=== PATIENT | female | born 1990 | race Caucasian/White ===

== ENCOUNTER 2016-04-26 13:21 | Emergency (ER) | payer OTHER ==
[~2016-04-26] VITALS: Ht 167.6 cm; Wt 95.4 kg
[~2016-04-26 13:21] MED LIST: Motrin PO; NAPROSYN500 MG PO; ORTHO CYCLEN1 TABLET PO; VICODIN 5-3001 EACH PO; ZITHROMAX250 MG PO; ZOLOFT25 MG PO
[2016-04-26] MEDS ORDERED: PERCOCET 5/31 TABLET PO (14:29)
[2016-04-26] MEDS ORDERED: MOTRIN800 MG PO (14:29)
[2016-04-26] MEDS ORDERED: FLEXERIL10 MG PO (14:29)
[2016-04-26] MEDS ORDERED: MELOXICAM7.5 MG PO (14:44)
[2016-04-26] MEDS ORDERED: ANORO ELLIPTA1 EACH IH (14:45)
[2016-04-26] MEDS ORDERED: VENTOLIN HFA18 GM IH (14:45)
[2016-04-26 14:51] VITALS: BP 136/88
== END 2016-04-26 14:53 | disposition home or self-care (01) ==
LOC: EME 13:21
DX: S16.1XXA Strain of muscle, fascia and tendon at neck level, initial encounter (principal); S46.911A Strain of unspecified muscle, fascia and tendon at shoulder and upper arm level, right arm, initial encounter; F17.200 Nicotine dependence, unspecified, uncomplicated; Z88.6 Allergy status to analgesic agent; Z91.041 Radiographic dye allergy status
CPT/HCPCS: 99281; 99284

== ENCOUNTER 2016-06-21 19:10 | Emergency (ER) | payer OTHER ==
[~2016-06-21] VITALS: Ht 167.6 cm; Wt 97.7 kg
[~2016-06-21 19:10] MED LIST changes: +ANORO ELLIPTA1 EACH IH; +FLEXERIL10 MG PO; +MELOXICAM7.5 MG PO; +MOTRIN800 MG PO; +PERCOCET 5/31 TABLET PO; +VENTOLIN HFA18 GM IH
[2016-06-21] MEDS ORDERED: FLONASE16 G1 BOTH NARES (19:47)
[2016-06-21] MEDS ORDERED: NAPROSYN500 MG PO (19:47)
[2016-06-21] MEDS ORDERED: 12 HOUR DECONG120 M1 PO (19:47)
[2016-06-21 20:12] VITALS: BP 137/92
== END 2016-06-21 20:14 | disposition home or self-care (01) ==
LOC: EME 19:10
DX: H69.91 Unspecified Eustachian tube disorder, right ear (principal); R51 Headache; J44.9 Chronic obstructive pulmonary disease, unspecified; F17.200 Nicotine dependence, unspecified, uncomplicated
CPT/HCPCS: 99281; 99284

== ENCOUNTER 2016-07-22 14:20 | Emergency (ER) | payer OTHER ==
[~2016-07-22] VITALS: Ht 167.6 cm; Wt 100.1 kg
[~2016-07-22 14:20] MED LIST changes: +12 HOUR DECONG120 M1 PO; +FLONASE16 G1 BOTH NARES
[2016-07-22] MEDS ORDERED: INDOCIN50 MG PO (15:26)
[2016-07-22] MEDS ORDERED: VALIUM5 MG PO (15:26)
[2016-07-22 15:54] VITALS: BP 140/101
== END 2016-07-22 15:56 | disposition home or self-care (01) ==
LOC: EME 14:20
DX: S16.1XXA Strain of muscle, fascia and tendon at neck level, initial encounter (principal); S46.812A Strain of other muscles, fascia and tendons at shoulder and upper arm level, left arm, initial encounter; X50.0XXA Overexertion from strenuous movement or load, initial encounter; F17.200 Nicotine dependence, unspecified, uncomplicated; Z88.6 Allergy status to analgesic agent; Z91.041 Radiographic dye allergy status
CPT/HCPCS: 99281; 99283; J3010

== ENCOUNTER 2016-09-01 01:31 | Emergency (ER) | payer OTHER ==
[~2016-09-01] VITALS: Ht 167.6 cm; Wt 98.6 kg
[~2016-09-01 01:31] MED LIST changes: +INDOCIN50 MG PO; +VALIUM5 MG PO
[2016-09-01] MEDS ORDERED: VALIUM5 MG PO (04:03)
[2016-09-01] MEDS ORDERED: MEDROL DOSEPAK4 MG PO (04:03)
[2016-09-01] MEDS ORDERED: PERCOCET 5/31 TABLET PO (04:03)
[2016-09-01 04:27] VITALS: BP 138/72
== END 2016-09-01 04:30 | disposition home or self-care (01) ==
LOC: EME 01:31
DX: M54.12 Radiculopathy, cervical region (principal); Z88.6 Allergy status to analgesic agent; Z91.041 Radiographic dye allergy status
CPT/HCPCS: 99281; 99283; J7512

== ENCOUNTER → 2017-01-08 | Outpatient (CLI) | payer OTHER ==
[~2017-01-08] MED LIST changes: +MEDROL DOSEPAK4 MG PO
== END | disposition home or self-care (01) ==
LOC: CDC 09:08
DX: Z01.810 Encounter for preprocedural cardiovascular examination (principal); M75.112 Incomplete rotator cuff tear or rupture of left shoulder, not specified as traumatic; M25.512 Pain in left shoulder
CPT/HCPCS: 93000

== ENCOUNTER 2017-02-05 22:22 | Emergency (ER) | payer OTHER ==
[~2017-02-05] VITALS: Ht 167.6 cm; Wt 94.9 kg
[2017-02-06] MEDS ORDERED: PERCOCET 5/31 TABLET PO (00:12)
[2017-02-06 00:27] VITALS: BP 141/78
== END 2017-02-06 00:28 | disposition home or self-care (01) ==
LOC: EME 22:22
DX: M96.830 Postprocedural hemorrhage of a musculoskeletal structure following a musculoskeletal system procedure (principal); Y84.9 Medical procedure, unspecified as the cause of abnormal reaction of the patient, or of later complication, without mention of misadventure at the time of the procedure; Z98.890 Other specified postprocedural states; F17.200 Nicotine dependence, unspecified, uncomplicated; F32.9 Major depressive disorder, single episode, unspecified; Z88.6 Allergy status to analgesic agent
CPT/HCPCS: 99281; 99283

== ENCOUNTER 2017-10-08 19:48 | Emergency (ER) | payer OTHER ==
[~2017-10-08] VITALS: Ht 167.6 cm; Wt 99.3 kg
[2017-10-08 20:37] LABS: HEMOGLOBIN 12.9 G/DL (11.9-15.5); MCH 31.5 PG (29.0-34.0); MCHC 33.1 G/DL (30.0-36.0); MCV 95.1 FL (83-99); PLATELET COUNT 157 K/uL (156-360); RBC DIS.WIDTH-CV 14.6 % (11.8-14.6); RBC DIS.WIDTH-SD 50.5 % (39-53); WHITE BLOOD COUNT 8.1 K/uL (4.1-10.2)
[2017-10-08 21:11] LABS: ALBUMIN 4.2 g/dL (3.2-4.8); CHLORIDE 109 mEq/L (99-109); POTASSIUM 3.9 mEq/L (3.7-5.4); SODIUM 140 mEq/L (136-147)
[2017-10-08 21:13] LABS: GLUCOSE 144 mg/dL (70-99); TOTAL PROTEIN 7.1 g/dL (6.4-8.3)
[2017-10-08 21:15] LABS: TOTAL BILIRUBIN 0.2 mg/dL (0.0-1.0)
[2017-10-08 21:17] LABS: ALKALINE PHOSPHATASE 98 IU/L (3-129); CREATININE 0.8 mg/dL (0.6-1.3); GFR ESTIMATE (CALCULATED) > 59 mL/min/
[2017-10-08 21:18] LABS: UREA NITROGEN (BUN) 8 mg/dL (9-23)
[2017-10-08 21:19] LABS: AST (GOT) 15 IU/L (2-34)
[2017-10-08 21:20] LABS: ALT (GPT) 25 IU/L (3-49)
[2017-10-08 21:26] LABS: QUANTITATIVE HCG 187.6 MIU/ML
[2017-10-08 21:46] LABS: LIPASE 37 U/L (1.0-51.0)
[2017-10-08 22:06] LABS: APPEARANCE SL.HAZY ((CLEAR)); BILIRUBIN SMALL; BLOOD NEGATIVE; COLOR YELLOW ((YELLOW)); GLUCOSE (STRIP) NEGATIVE; KETONES 5; LEUKOCYTES NEGATIVE; NITRITE NEGATIVE; PROTEIN (STRIP) 30; SPECIFIC GRAVITY 1.034 (1.000-1.030)
[2017-10-08 22:27] LABS: BACTERIA RARE /HPF; EPITHELIAL CELLS 3+ /HPF; MUCUS 1+ /LPF; RED BLOOD CELLS 0-5 /HPF (0-5); UCUL ADDED? NO; WHITE BLOOD CELLS NONE SEEN /HPF (0-5)
[2017-10-08 23:17] VITALS: BP 153/90
== END 2017-10-08 23:18 | disposition left against medical advice (07) ==
LOC: EME 19:48
DX: O99.89 Other specified diseases and conditions complicating pregnancy, childbirth and the puerperium (principal); R07.9 Chest pain, unspecified; R10.30 Lower abdominal pain, unspecified; R11.0 Nausea; O99.331 Smoking (tobacco) complicating pregnancy, first trimester; F17.200 Nicotine dependence, unspecified, uncomplicated; Z53.29 Procedure and treatment not carried out because of patient's decision for other reasons
CPT/HCPCS: 71046; 80053; 81003; 83690; 84702; 85027; 93005; 99281; 99285

== ENCOUNTER 2017-11-04 15:42 | Emergency (ER) | payer OTHER ==
[~2017-11-04] VITALS: Ht 167.6 cm; Wt 97.2 kg
[2017-11-04 17:16] LABS: APPEARANCE SL.HAZY ((CLEAR)); BILIRUBIN NEGATIVE; BLOOD NEGATIVE; COLOR YELLOW ((YELLOW)); GLUCOSE (STRIP) NEGATIVE; KETONES 5; LEUKOCYTES NEGATIVE; NITRITE NEGATIVE; PROTEIN (STRIP) 30; SPECIFIC GRAVITY 1.026 (1.000-1.030)
[2017-11-04 17:29] LABS: BACTERIA RARE /HPF; CALCIUM OXALATE CRYSTALS 2+ /HPF; EPITHELIAL CELLS RARE /HPF; MUCUS 1+ /LPF; RED BLOOD CELLS 0-5 /HPF (0-5); UCUL ADDED? NO; WHITE BLOOD CELLS 0-5 /HPF (0-5)
[2017-11-04 18:37] LABS: HEMATOCRIT 35.4 % (36.0-46.0); HEMOGLOBIN 11.8 G/DL (11.9-15.5); MCH 30.9 PG (29.0-34.0); MCHC 33.3 G/DL (30.0-36.0); MCV 92.7 FL (83-99); PLATELET COUNT 172 K/uL (156-360); RBC DIS.WIDTH-CV 14.6 % (11.8-14.6); RBC DIS.WIDTH-SD 49.3 % (39-53); RED BLOOD COUNT 3.82 M/uL (3.80-5.20); WHITE BLOOD COUNT 10.2 K/uL (4.1-10.2)
[2017-11-04 18:43] LABS: ALBUMIN 3.9 g/dL (3.2-4.8)
[2017-11-04 18:44] LABS: CHLORIDE 108 mEq/L (99-109); POTASSIUM 3.5 mEq/L (3.7-5.4); SODIUM 138 mEq/L (136-147)
[2017-11-04 18:46] LABS: GLUCOSE 90 mg/dL (70-99); TOTAL PROTEIN 6.5 g/dL (6.4-8.3)
[2017-11-04 18:48] LABS: TOTAL BILIRUBIN 0.2 mg/dL (0.0-1.0)
[2017-11-04 18:49] LABS: ALKALINE PHOSPHATASE 71 IU/L (3-129)
[2017-11-04 18:50] LABS: CREATININE 0.7 mg/dL (0.6-1.3); GFR ESTIMATE (CALCULATED) > 59 mL/min/
[2017-11-04 18:51] LABS: AST (GOT) 19 IU/L (2-34); UREA NITROGEN (BUN) 5 mg/dL (9-23)
[2017-11-04 18:52] LABS: ALT (GPT) 28 IU/L (3-49)
[2017-11-04 19:20] LABS: QUANTITATIVE HCG 60212.1 MIU/ML
[2017-11-04 21:50] VITALS: BP 129/66
== END 2017-11-04 21:54 | disposition home or self-care (01) ==
LOC: EME 15:42
PROVIDERS: Physician Assistant
DX: O43.891 Other placental disorders, first trimester (principal); O20.8 Other hemorrhage in early pregnancy; O9A.212 Injury, poisoning and certain other consequences of external causes complicating pregnancy, second trimester; S06.0X0A Concussion without loss of consciousness, initial encounter; S80.12XA Contusion of left lower leg, initial encounter; S76.012A Strain of muscle, fascia and tendon of left hip, initial encounter; V40.6XXA Car passenger injured in collision with pedestrian or animal in traffic accident, initial encounter; Y93.84 Activity, sleeping; Y92.410 Unspecified street and highway as the place of occurrence of the external cause; O99.342 Other mental disorders complicating pregnancy, second trimester; F32.9 Major depressive disorder, single episode, unspecified; F41.9 Anxiety disorder, unspecified; O99.332 Smoking (tobacco) complicating pregnancy, second trimester; F17.200 Nicotine dependence, unspecified, uncomplicated; Z88.5 Allergy status to narcotic agent; Z3A.08 8 weeks gestation of pregnancy
CPT/HCPCS: 73721; 76801; 80053; 81003; 84702; 85027; 99281; 99283